=== PATIENT | male | born 2000 | race Caucasian/White ===

== ENCOUNTER 2025-07-28 11:11 | Emergency (ER) | payer BC ==
[~2025-07-28] VITALS: Ht 177.8 cm; Wt 70.5 kg
[2025-07-28 12:05] LABS: MEAN PLATELET VOLUME 7.1 FL (7.4-10.4); RED CELL DISTRIBUTION WIDTH 12.9 % (11.5-14.5)
[2025-07-28] MEDS: metoclopramide 5 mg/ml inj IM ONE (12:14)
[2025-07-28] MEDS: normal saline 1000ml 1,000 ML IV ONE (12:14)
[2025-07-28 12:15] LABS: CREATININE 0.94 MG/DL (0.60-1.10); TOTAL CARBON DIOXIDE 33.4 MMOL/L (24-32); eCRCL 121 ML/MIN; eGFR > 90 ML/MIN
[2025-07-28] MEDS: glucagon, human recombinant 1mg kit IV ONE (12:25)
[2025-07-28 12:30] VITALS: TEMP 97.8
[2025-07-28] MEDS: midazolam 1 mg/ML 2ml injection IV ONE (13:48)
--- NOTE | 2025-07-28 15:05 | Physician Documentation ---
History of Present Illness ~ Chief Complaint: Foreign body Stated Complaint: FOOD STUCK IN THROAT Time Seen by MD: 11:47 OK to notify your PCP?: Yes Mode of Arrival: POV, Ambulatory HPI 25-year-old male patient ambulatory with a prior history of esophageal food impaction three four years ago came to the emergency room because of blockage of food bite with a piece of turkey 1-1/2 hours prior to arrival. He is not able to drink and he has been spitting saliva. No other complaints. Medication Reconciliation Allergies: Coded Allergies: No Known Allergies (Unverified , 07/28/25) Scheduled Pantoprazole Sodium (Pantoprazole Sodium), 1 TAB PO DAILY Sucralfate (Carafate), 10 ML PO Q6H Review of Systems ROS As stated above in the HPI, otherwise all systems are reviewed and negative. Physical Exam Vital Signs: Temperature: 97.8, Source: Temporal, Heart Rate: 73, Respiratory Rate: 14, BP: 116/77, Pulse Oximetry: 98, Weight: 70.450 Oxygen Flow Rate: 0 Physical Exam Reviewed vital signs and they are well within normal range. Const: Not in any distress Head: Atraumatic Eyes: Normal Conjunctiva ENT: Normal External Ears, Nose and Mouth. Moist mucous membrane Neck: Full range of motion. No meningismus Resp: Clear to auscultation bilaterally. Normal work of breathing Cardio: Regular rate and rhythm, no murmurs. Skin well perfused Abd: Soft, non-tender, non-distended. Normal bowel sounds. No rebound or guardi ng Skin: No petechiae or rashes. Warm and dry Back: No midline or flank tenderness Ext: No cyanosis, or edema Neuro: Awake and alert Psych: Normal Mood and Affect Progress Results/Orders Results/Orders Orders - MARIELENA GUTIERREZ MD Saline Lock (07/28/25 11:50) Completed Orders - MARIELENA GUTIERREZ MD Cbc/Diff (07/28/25 11:50) Metoclopramide Inj (Reglan Inj) (07/28/25 11:50) Normal Saline 1000ml (0.9% Sodium Chlori (07/28/25 11:50) BMP (07/28/25 11:50) Glucagon, Human Recombinant (Glucagen In (07/28/25 11:50) Lorazepam Inj (Ativan Inj) (07/28/25 13:00) Midazolam 1 Mg/Ml 2ml Inj. (Versed 1 Mg/ (07/28/25 13:45) Fentanyl/Pf (Fentanyl 0.05 Mg/Ml Syringe (07/28/25 15:52) Midazolam 1 Mg/Ml 2ml Inj. (Versed 1 Mg/ (07/28/25 15:53) Succinylcholine Inj (Quelicin Inj) (07/28/25 15:54) Propofol Inj (Diprivan Inj) (07/28/25 15:54) Lidocaine 2% 5ml Vial (Xylocaine 2% 5ml (07/28/25 15:54) Succinylcholine Inj (Quelicin Inj) (07/28/25 15:59) Ondansetron Inj. (Zofran 4mg/2ml Vial) (07/28/25 16:13) Dexamethasone Inj (Decadron 4mg/Ml 5ml I (07/28/25 16:15) Vital Signs 07/28/25 07/28/25 07/28/25 07/28/25 11:22 11:29 11:29 12:30 Temp 97.8 97.8 Pulse 94 87 89 Resp 18 16 16 18 B/P (MAP) 152/77 131/76 (94) 125/77 (93) Pulse Ox 99 99 100 O2 Flow Rate 0 0 07/28/25 07/28/25 07/28/25 07/28/25 13:48 14:07 15:31 16:24 Temp 98.4 Pulse 73 86 85 Resp 19 14 18 16 B/P (MAP) 116/77 (90) 119/74 (89) 118/61 (80) Pulse Ox 98 99 100 O2 Delivery Mask O2 Flow Rate 0 0 10.0 07/28/25 07/28/25 07/28/25 07/28/25 16:34 16:44 16:54 17:02 Pulse 82 86 83 85 Resp 14 16 16 18 B/P (MAP) 121/62 (81) 122/71 (88) 121/76 (91) 119/72 (88) Pulse Ox 98 99 99 100 O2 Delivery Room Air Room Air Room Air O2 Flow Rate 0.0 0.0 0.0 0 07/28/25 18:02 Pulse 77 Resp 18 B/P (MAP) 112/71 (85) Pulse Ox 100 O2 Flow Rate 0 Laboratory Tests Test 07/28/25 11:57 White Blood Count 6.2 Red Blood Count 4.94 Hemoglobin 14.4 Hematocrit 41.2 L Mean Corpuscular Volume 83.4 Mean Corpuscular Hemoglobin 29.2 Mean Corpuscular Hemoglobin Concent 35.0 Red Cell Distribution Width 12.9 Platelet Count 203 Mean Platelet Volume 7.1 L Neutrophils (%) (Auto) 51.9 Lymphocytes (%) (Auto) 27.6 Monocytes (%) (Auto) 9.0 Eosinophils (%) (Auto) 11.1 H Basophils (%) (Auto) 0.4 Neutrophils # (Auto) 3.2 Lymphocytes # (Auto) 1.7 Monocytes # (Auto) 0.6 Eosinophils # (Auto) 0.7 Basophils # (Auto) 0.0 CBC Comment Sodium Level 142 Potassium Level 3.8 Chloride Level 105 Carbon Dioxide Level 33.4 H Anion Gap 4 L Blood Urea Nitrogen 10 Creatinine 0.94 Estimated GFR/1.73 m2 > 90 BUN/Creatinine Ratio 10.6 Glucose Level 89 Calcium Level 9.1 Albumin 4.1 Chemistry Comments Medical Decision Making Additional information obtaine: other Findings During the physical examination, the findings suggestive of acute life- threatening condition such as JVD, tracheal deviation, acidotic breathing, noisy stridorous breath sounds, pulses paradoxus, muffled heart sounds, unequal breath sounds, abdominal rigidity and rebound tenderness, focal neurological deficits, cool clammy skin, severe hypotension, severe tachycardia or bradycardia are absent. Obviously the patient has esophageal food impaction, I did tried to dislodge with IV metoclopramide follow up by IV glucagon. Did not work. I called Dr. Ackerman GI specialist at 13:00 hours and she wants me to try with Ativan intravenously. Because of restriction from pharmacy I gave him midazolam 2 mg intravenously and it does not work. I called Dr. Ackerman back at 14:55 hours and the patient will be taken to the GI lab for endoscopic retrieval. Food impaction was successfully taking care of by endoscopic retrieval of the impacted food. He was found to have esophageal stricture. DISCLAIMER Inadvertent spelling and grammatical errors,inadvertent hard metals engraver hand errors,syntax errors, grammatical errors, and spelling errors are likely due to EMR/dictation software use and do not reflect on the overall quality of patient care. Note that the electronic time recorded on this note does not necessarily reflect the actual time of the patient encounter. Diff Dx GI Bleed:Consideration: Include: AE fistula Diff Dx Pain:Considerations: Include: AAA Diff Dx N/V/D:Considerations: Include: Appendicitis Diff Dx Rectal:Considerations: Include: Fissure Departure Disposition: HOME / SELF CARE / HOMELESS Impression: Primary Impression: Esophageal obstruction due to food impaction Additional Impression: Esophageal stricture Discharge Instructions: Foreign Body, Swallowed, Adult Additional Instructions: Thank you for coming to our Emergency Department today. Please call GI specialist for arranging for esophageal dilation after the holidays. Please ask your nurse or provider if you have questions about your care today and do not leave until all your questions have been answered. Please use any medications given as directed and follow-up with your doctor (or the doctor you were referred to) in the next 1-3 days. Your primary care doctor can help to coordinate outpatient specialty care and provide authorization for specialty referral as needed. If you do not have a primary care doctor [facility] You may also use motrin and tylenol as needed for fever and/or pain unless instructed otherwise by your provider or nurse. Indications for more urgent follow-up have been discussed, but you may return to the Emergency Department at ANY time for any worrisome or worsening symptoms. [facility] Facilities: [facility] Facilities: [facility]: [facility] [place] Address:[address] [place] [address] [facility]: [place] Address:[address] [place] [id number] [facility]: Telemedicine Address:[address] [place] [address] [facility] Address:[address] [place] [address] Registration Billing Pharmacy Referrals [facility] Address:[address] [place] [address] Referrals: NO PRIMARY CARE PROVIDER (PCP) Prescriptions Pantoprazole Sodium (Pantoprazole Sodium) 40 Mg Tablet.dr 1 TAB PO DAILY for 30 Days, #30 TAB 0 Refills Prov: MARIELENA GUTIERREZ MD 07/28/25 Sucralfate (Carafate) 1 Gram/10 Ml Oral.susp 10 ML PO Q6H for 30 Days, #1260 ML 0 Refills before food and bedtime Prov: MARIELENA GUTIERREZ MD 07/28/25 Signature Scribe Signature: x Attestation: MARIELENA Garcia MD Jul 28, 2025 15:05
[2025-07-28] MEDS ORDERED: fentaNYL/PF 50MCG/1 ML 2ML syringe ONE (15:52)
[2025-07-28] MEDS ORDERED: midazolam 1 mg/ML 2ml injection ONE (15:53)
[2025-07-28] MEDS ORDERED: propofol inj 20 ML IV ONE (15:54)
[2025-07-28] MEDS ORDERED: succinylcholine 20mg/ml inj IV ONE ×2 (15:54→15:59)
[2025-07-28] MEDS ORDERED: LIDOcaine 2% (20mg/ml) 5ml vial ONE (15:54)
[2025-07-28] MEDS ORDERED: ondansetron/PF 4mg/2ml inj ONE (16:13)
[2025-07-28] MEDS ORDERED: dexamethasone sod phosphate 4mg/ml inj. ONE (16:15)
[2025-07-28 16:24] VITALS: BP 118/61; PULSE 85; RESP 16; O2SAT 100
[2025-07-28 16:34] VITALS: BP 121/62; PULSE 82; RESP 14; O2SAT 98
[2025-07-28 16:44] VITALS: BP 122/71; PULSE 86; RESP 16; O2SAT 99
[2025-07-28 16:54] VITALS: BP 121/76; PULSE 83; RESP 16; O2SAT 99
[2025-07-28] MEDS ORDERED: PANT40TA54 PO (18:01)
[2025-07-28] MEDS ORDERED: SUCR1ORA12 PO (18:01)
[2025-07-28 18:02] VITALS: BP 112/71; PULSE 77; RESP 18; O2SAT 100
--- NOTE | 2025-07-28 18:16 | CONSULTATION ---
DATE OF CONSULTATION: 07/28/2025 DICTATING PHYSICIAN: Drea Craft MD REASON FOR CONSULTATION: Dysphagia and food impaction. HISTORY OF PRESENT ILLNESS: The patient is 25 years old, came to the Emergency Department after eating turkey this morning and then having dysphagia and food impaction. The patient apparently has not been able to swallow his own saliva. This happened during the early interventionist breakfast. The patient has had similar episodes about 2 times before and both the times he has had endoscopic relief of food impaction. No other medical history. He does have some history of reflux disease in the past. Past medical history, family history, personal history noncontributory. REVIEW OF SYSTEMS: A 12-point review of systems same as history of present illness. PHYSICAL EXAMINATION: GENERAL: He is awake, alert, appears to be in no apparent distress. VITAL SIGNS: Normal. HEART AND LUNGS: Normal. ABDOMEN: Soft, nontender. No masses. No organomegaly. Bowel sounds are present. EXTREMITIES: Reveal no clubbing, cyanosis or edema. Cranial spinal axis within normal limits. NEUROLOGIC: Reveals no anemia, petechiae or purpura. PSYCHOLOGIC: Within normal limits. LABORATORY DATA: Laboratory values were unremarkable. IMPRESSION: Young man admitted to the Emergency Department with dysphagia and food impaction. The patient apparently has a similar history. Esophageal stricture is a possibility. Eosinophilic esophagitis is a possibility. RECOMMENDATIONS: Endoscopy and food disimpaction and further recommendations will be made after the endoscopy depending on the findings. He will need followup in the office, which will be arranged upon discharge from the Emergency Department. Drea Craft MD TID: [id number] RECEIPT: [id number] /[facility]
== END 2025-07-28 18:06 | disposition home or self-care (01) ==
LOC: ER 11:12
DX: T18.128A Food in esophagus causing other injury, initial encounter (principal); K22.2 Esophageal obstruction; Z79.899 Other long term (current) drug therapy; W44.F3XA Food entering into or through a natural orifice, initial encounter; Y93.89 Activity, other specified; Y92.89 Other specified places as the place of occurrence of the external cause; Y99.8 Other external cause status
CPT/HCPCS: 36415; 43247; 80048; 85025; 96361; 96372; 96374; 96375; 99285; J0330; J1100; J1610; J2003; J2250; J2405; J2704; J2765; J3010; J7030; Z7512; A4615